=== PATIENT | male | born 1985 | race Caucasian/White ===

== ENCOUNTER 2018-03-14 15:11 | Emergency (ER) | payer OTHER ==
[~2018-03-14] VITALS: Ht 182.9 cm; Wt 108.2 kg
[2018-03-14 15:17] VITALS: Ht 182.9 cm; Wt 108.2 kg
[2018-03-14 16:52] LABS: microscopic required? NO
[2018-03-14 17:07] LABS: BASOPHIL % 0.1 % (0-2); PLATELET COUNT 332 x10^3mcL (130-400); RED CELL DISTRIBUTION WIDTH 14.1 % (11.5-14.5)
[2018-03-14 17:09] LABS: CALCIUM 9.4 mg/dL (8.5-10.1); CARBON DIOXIDE 28.5 mmol/L (21-32); CHLORIDE SERUM 103 mmol/L (98-107); CREATININE SERUM 1.1 mg/dL (0.7-1.3); GFR1 > 60 mL/min; GLUCOSE SERUM 96 mg/dL (74-106); POTASSIUM SERUM 3.6 mmol/L (3.5-5.1); SODIUM SERUM 141 mmol/L (136-145)
[2018-03-14 17:14] LABS: ALBUMIN 4.1 g/dL (3.4-5.0); ALKALINE PHOSPHATASE 149 U/L (46-116); ALT/SGPT 37 U/L (16-63); AMYLASE 54 U/L (25-115); AST/SGOT 29 U/L (15-37); BILIRUBIN TOTAL 0.37 mg/dL (0.20-1.00); LIPASE 236 IU/L (73-393); TOTAL PROTEIN, SERUM 8.2 g/dL (6.4-8.2)
[2018-03-14 17:15] LABS: urine erythrocyte NEGATIVE (NEGATIVE)
[2018-03-14 17:20] VITALS: BP 133/73
[2018-03-14 19:48] LABS: AMPHETAMINE QUAL UR NONE DETECTED (See below)
== END 2018-03-14 17:20 | disposition home or self-care (01) ==
LOC: ED 15:11
PROVIDERS: Emergency Medicine
DX: K80.20 Calculus of gallbladder without cholecystitis without obstruction (principal); I10 Essential (primary) hypertension
CPT/HCPCS: J7030; Q0092